=== PATIENT | male | born 1945 | race Caucasian/White ===

== ENCOUNTER 2018-12-08 07:26 | Day surgery (SDC) | payer MEDICARE, OTHER ==
[~2018-12-08] VITALS: Ht 182.9 cm; Wt 79.4 kg
[~2018-12-08 07:26] MED LIST: ASPIRIN EC81 MG PO; BETAMETHASONE V15 G1 TOP; LISINOPRIL10 MG PO; LOSARTAN POTASS50 MG PO; PRAVASTATIN SOD20 MG PO; TERAZOSIN HCL5 MG PO; VITAMIN B-12100 MCG PO; VITAMIN D1000 UNI1 PO
--- NOTE | 2018-12-08 10:01 | NUR ---
12/08/18 Jarrod1 Valeria Chambers 2246 PT TO PACU VERY SLEEPY. 02 PLACED VIA NASAL CANNULA.
--- NOTE | 2018-12-08 14:12 | NUR ---
PT ASLEEP, STAFF REQUESTED I LET HIM SLEEP. WILL FOLLOW NEEDED
--- NOTE | 2018-12-09 06:30 | OR ---
[facility] [address] [place], [place] [address] Signed DATE OF OPERATION: 12/08/2018 SURGEON: Mitchell Dickinson MD PREOPERATIVE DIAGNOSES: 1. Personal history of colonic polyps in 1999 and 2008. 2. Diverticulosis. 3. Internal hemorrhoids. POSTOPERATIVE DIAGNOSES: 1. Minimal hlr-nb-mjfpiu sigmoid diverticulosis. 2. Ukxuoes-eh-lbfymlwt internal and external hemorrhoids. 3. Flattened prostate after radiation therapy. PROCEDURE: Colonoscopy without biopsy. ESTIMATED BLOOD LOSS: None. 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 He has had colonic polyps removed as far back as 1999. He is known to have diverticulosis along with minimal internal hemorrhoids. He and his are now retired. He had been traveling all over the world and enjoying that very much. He returns now for his followup colonoscopy. Of course, he walks on a daily basis and stays in excellent shape. He did bring his EKG with him and it shows sinus rhythm with a first-degree AV block along with a right bundle branch block. He told me he has had that for ever. It does not affect his activities whatsoever. In the meantime, he did have a prostate cancer and ended up with external beam radiation therapy. Otherwise, no specific lower GI complaints. Walter is quite familiar with colonoscopy. He understands the risks, the risks including, but not limited to gas bloating, crampy abdominal pain, bleeding, perforation, requiring surgery, and missed diagnosis. He also understands the need for IV conscious sedation. He has done well with Versed and fentanyl in the past. He had expressed understanding and wished to proceed. PROCEDURE NOTE: Walter was taken into our endoscopy suite and placed in the left lateral decubitus position. He was given a total of 10 mg of Versed and 200 mcg of fentanyl. Walter is tall with a lean build and his sigmoid colon is long and a bit tortuous and it did cause Electronically Signed By: MITCHELL DICKINSON MD 12/09/18 0630 PATIENT NAME: WALTER COCHRAN OPERATIVE REPORT DATE OF : 41 REPORT #: [id number] PHYSICIAN: MITCHELL DICKINSON MD PCP: JIMY VICTORIA MD REPORT IS CONFIDENTIAL AND NOT TO BE RELEASED WITHOUT AUTHORIZATION [facility] [address] [place] [id number] Signed him some discomfort during the procedure. If he has recall the procedure, he might strongly consider propofol as he returns at age 78. A digital rectal exam was performed and he does have some lciqy-hj-mumotngn external hemorrhoids. His sphincter tone is good. The prostate gland is nearly flat, just a small nodule in that area. After this the adult colonoscope was introduced and advanced all around into the cecum. It did take extra sedation and abdominal compression in order to get the scope correctly into the cecum itself. His prep was good. We had taken pictures throughout for photodocumentation. We could easily see the appendiceal orifice and ileocecal valve. We saw no polyps throughout the colon or rectum. Again, he has minimal diverticula in his wlh-fx-kcyzfo sigmoid colon. They were small in size, few in number, and scattered about. The rectum was unremarkable. No evidence of any radiation proctitis. Upon retroflexion of scope he does have njsobot-ow-gacwzbpf standard internal hemorrhoid columns. After this, the gas was suctioned out and colonoscope removed. Walter tolerated his procedure quite well. RECOMMENDATIONS: Walter is welcome to return in 5 years for repeat colonoscopy so long his health holds up. He might consider propofol at age 78 given our experience on this particular endoscopy. I think he would be more relaxed and the scope would pass much easier and his risk for perforation then will be markedly decreased. Otherwise, we will put him on our computer for 5 years. Mitchell Dickinson MD ALB/MODL /[id number] cc: MD Mitchell Hopkins MD Copies: JIMY VICTORIA MD Electronically Signed By: MITCHELL DICKINSON MD 12/09/18 0630 PATIENT NAME: WALTER COCHRAN OPERATIVE REPORT DATE OF : 41 REPORT #: [id number] PHYSICIAN: MITCHELL DICKINSON MD PCP: JIMY VICTORIA MD REPORT IS CONFIDENTIAL AND NOT TO BE RELEASED WITHOUT AUTHORIZATION [facility] [address] [facility] [place], [place] [address] Signed MITCHELL DICKINSON MD ~ Electronically Signed By: MITCHELL DICKINSON MD 12/09/18 0630 PATIENT NAME: WALTER COCHRAN OPERATIVE REPORT DATE OF : 41 REPORT #: [id number] PHYSICIAN: MITCHELL DICKINSON MD PCP: JIMY VICTORIA MD REPORT IS CONFIDENTIAL AND NOT TO BE RELEASED WITHOUT AUTHORIZATION
== END 2018-12-08 10:55 | disposition home or self-care (01) ==
LOC: DS 07:26 → OPS 07:26 → DS 09:00 → OPS 09:00
PROVIDERS: Colon & Rectal Surgery
PROC: 0DJD8ZZ Inspection of Lower Intestinal Tract, Via Natural or Artificial Opening Endoscopic (ICD-10-PCS; principal; 2018-12-08 09:00)
DX: Z12.11 Encounter for screening for malignant neoplasm of colon (principal); K64.8 Other hemorrhoids; K64.4 Residual hemorrhoidal skin tags; N40.2 Nodular prostate without lower urinary tract symptoms; K57.30 Diverticulosis of large intestine without perforation or abscess without bleeding; I10 Essential (primary) hypertension; E78.5 Hyperlipidemia, unspecified; G43.909 Migraine, unspecified, not intractable, without status migrainosus; N40.0 Benign prostatic hyperplasia without lower urinary tract symptoms; Z88.8 Allergy status to other drugs, medicaments and biological substances; Z86.010 Personal history of colon polyps; Z79.899 Other long term (current) drug therapy; Z79.82 Long term (current) use of aspirin
CPT/HCPCS: G0105; 99153; G0500; J2250; J3010; J7120

== ENCOUNTER 2021-03-10 13:30 | Emergency (ER) | payer MEDICARE, BC ==
[~2021-03-10] VITALS: Ht 152.4 cm; Wt 72.6 kg
[2021-03-10] MEDS ORDERED: VOLTAREN ARTHRI20 GM TP (13:57)
--- NOTE | 2021-03-12 12:53 | NUR ---
Call from [employer] stating patients monitor is flashing. They have sent him a gateway replacement to solve problem. I will notify Dr Phi Brown PCP.
--- NOTE | 2021-03-12 14:32 | EKG ---
[facility] [address] [facility] [place] [address] Signed Wide QRS rhythm Right bundle branch block Abnormal ECG When compared with ECG of 13-AUG-2016 18:54, Wide QRS rhythm has replaced Sinus rhythm Confirmed by YUDITH MARQUES DO ([id number]) on 03/12/2021 2:32:32 PM Electronically Signed By: YUDITH MARQUES DO 03/12/21 1432 PATIENT NAME: WALTER COCHRAN Electrocardiogram DATE OF : 41 PHYSICIAN: YUDITH MARQUES DO REPORT #: [id number] REPORT IS CONFIDENTIAL AND NOT TO BE RELEASED WITHOUT AUTHORIZATION
== END 2021-03-10 17:40 | disposition home or self-care (01) ==
LOC: ED 13:30
DX: R53.1 Weakness (principal); I49.9 Cardiac arrhythmia, unspecified; I10 Essential (primary) hypertension; Z88.8 Allergy status to other drugs, medicaments and biological substances; Z79.899 Other long term (current) drug therapy; Z85.46 Personal history of malignant neoplasm of prostate
CPT/HCPCS: 80053; 83735; 84484; 85025; 93005; 93010; 99285-25

== ENCOUNTER 2021-08-29 23:03 | Emergency (ER) | payer MEDICARE, BC ==
[~2021-08-29] VITALS: Ht 152.4 cm; Wt 73.5 kg
[~2021-08-29 23:03] MED LIST changes: +VOLTAREN ARTHRI20 GM TP
[2021-08-29] MEDS ORDERED: TERAZOSIN HCL2 MG PO (23:28)
== END 2021-08-30 01:28 | disposition home or self-care (01) ==
LOC: ED 23:03
DX: I10 Essential (primary) hypertension (principal); R68.83 Chills (without fever); Z20.822 Contact with and (suspected) exposure to COVID-19; G43.909 Migraine, unspecified, not intractable, without status migrainosus; Z85.46 Personal history of malignant neoplasm of prostate
CPT/HCPCS: 71045; 80053; 81001; 85025; 99283-25; C9803; J7030; U0003

== ENCOUNTER 2022-02-28 07:32 | Emergency (ER) | payer MEDICARE, BC ==
[~2022-02-28] VITALS: Ht 152.4 cm; Wt 73.5 kg
[~2022-02-28 07:32] MED LIST changes: +TERAZOSIN HCL2 MG PO
--- NOTE | 2022-02-28 20:23 | EKG ---
[facility] [address] [facility] [place] [address] Signed Sinus bradycardia with 1st degree AV block Right bundle branch block Abnormal ECG When compared with ECG of 10-MAR-2021 13:37, Sinus rhythm has replaced Wide QRS rhythm Vent. rate has decreased BY 32 BPM Confirmed by PJ KOCH MD ([id number]) on 02/28/2022 8:23:16 PM Electronically Signed By: PJ KOCH MD 02/28/222022 PATIENT NAME: WALTER COCHRAN POPPY Electrocardiogram DATE OF : 41 PHYSICIAN: PJ KOCH MD REPORT #: [id number] REPORT IS CONFIDENTIAL AND NOT TO BE RELEASED WITHOUT AUTHORIZATION
== END 2022-02-28 11:33 | disposition home or self-care (01) ==
LOC: ED 07:32
DX: R53.1 Weakness (principal); R63.4 Abnormal weight loss; Z68.31 Body mass index [BMI] 31.0-31.9, adult; Z20.822 Contact with and (suspected) exposure to COVID-19; I10 Essential (primary) hypertension; G43.909 Migraine, unspecified, not intractable, without status migrainosus; Z88.8 Allergy status to other drugs, medicaments and biological substances; Z79.899 Other long term (current) drug therapy
CPT/HCPCS: 36415; 71045; 72080; 72170; 80053; 81001; 83690; 84443; 84484; 85025; 87502; 93005; 93010; 99285-25; C9803; J7030; U0003

== ENCOUNTER 2024-05-12 12:39 | Emergency (ER) | payer MEDICARE, OTHER ==
[~2024-05-12] VITALS: Ht 152.4 cm; Wt 74.4 kg
[2024-05-12 14:20] LABS: BILIRUBIN, URINE NEGATIVE (negative); BLOOD/HGB, URINE NEGATIVE (Negative); KETONE, URINE NEGATIVE (Negative); LEUK ESTERASE, URINE NEGATIVE (negative); NITRITE, URINE NEGATIVE (negative)
[2024-05-12 14:26] LABS: BACTERIA, URINE NONE SEEN /hpf (negative); CASTS, URINE NONE SEEN \\lpf; COLLECTION TYPE, URINE CLEAN CATCH; CRYSTALS, URINE NONE SEEN (0-1+); EPITHELIAL CELLS, URINE 0 /lpf (0-1+); RED BLOOD CELLS, URINE 0-1 /hpf (0-5); REFLEX CULTURE, URINE No (No); WHITE BLOOD CELLS, URINE 0-1 /HPF (0-5)
[2024-05-12 15:30] VITALS: BP 175/71
== END 2024-05-12 15:34 | disposition home or self-care (01) ==
LOC: ED 12:39
PROVIDERS: Emergency Medicine
DX: N45.1 Epididymitis (principal); N43.3 Hydrocele, unspecified; I10 Essential (primary) hypertension; K58.9 Irritable bowel syndrome, unspecified; G43.909 Migraine, unspecified, not intractable, without status migrainosus; Z85.46 Personal history of malignant neoplasm of prostate; Z88.8 Allergy status to other drugs, medicaments and biological substances; Z79.899 Other long term (current) drug therapy
CPT/HCPCS: 76870; 81001; 99284-25

== ENCOUNTER 2024-06-24 05:50 | Day surgery (SDC) | payer MEDICARE, OTHER ==
[2024-06-21 09:25] VITALS: BP 136/76
[~2024-06-24] VITALS: Ht 180.3 cm; Wt 70.9 kg
[~2024-06-24 05:50] MED LIST changes: +MIDAZOLAM HCL 5 MG/5 ML VIAL IV PRN; +MULTI VITAMIN1 EACH PO; +fentaNYL citrate 100 MCG/2 ML VIAL IV PRN
[2024-06-24 06:00] VITALS: BP 152/73
[2024-06-24] MEDS ORDERED: IBLOOD GLUCOSE TEST STRIP 1 EA TEST VI PRN (07:00)
[2024-06-24] MEDS ORDERED: LACTATED RINGER'S 1,000 ML IV SCH (07:00)
[2024-06-24] MEDS ORDERED: LIDOCAINE HCL 1% 5 ML SDV INJ ONE (07:00)
[2024-06-24] MEDS ORDERED: LIDOCAINE HCL 2% 5 ML SDV ONE (07:23)
[2024-06-24] MEDS ORDERED: propofoL 200 MG/20 ML VIAL ONE (07:23)
--- NOTE | 2024-06-24 08:27 | NUR ---
06/24/24 0827 Keaton,Susan 0800 PT ARRIVED TO PACU ON 6L VIA MASK, PT ASLEEP AND RESP EVEN AND UNLABORED. VSS. 0808 PT WAKES AND O2 REMOVED, PT REORIENTED TO PACU AND DENIES CONCERNS. PT ENCOURAGED TO PASS GAS AND PT ABLE TO DO SO OFF AND ON. PLAN OF CARE DISUCSSED.
[2024-06-24 08:39] VITALS: BP 152/71
--- NOTE | 2024-06-24 09:25 | OR ---
[facility] [address] [place], [place] [address] Signed DATE OF OPERATION: 06/24/2024 SURGEON: Mitchell Dickinson MD PREOPERATIVE DIAGNOSES: 1. Positive Cologuard test in March 2024. 2. Irritable bowel syndrome. 3. Tubular adenomatous polyps in 1999 at age 55. 4. Diverticulosis. 5. Internal and external hemorrhoids. 6. Tortuous sigmoid colon. 7. Radiation treatment for prostate cancer. POSTOPERATIVE DIAGNOSES: 1. A 3 mm polyp at base of cecum. 2. A 4 mm polyp at 60 cm in left colon. 3. Possible minimal melanosis coli. 4. Minimal sigmoid diverticulosis. 5. Tortuous sigmoid colon. 6. Moderate internal and external hemorrhoids. 7. Mild distal radiation proctitis. PROCEDURE: Colonoscopy with hot biopsy. ESTIMATED BLOOD LOSS: None. 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 He was asked to see me for a positive Cologuard test in March of 2024. I had reviewed his rather extensive records. He is known to have irritable bowel syndrome throughout his life. He has a little fecal soilage from time to time. He had an initial colonoscopy in 1999 at the age of 55 [address] Hugo Sal. He had an adenomatous polyp removed at that time. Dr. Sal had him come back in 2001 at the age of 57 for repeat, but negative colonoscopy. I helped in 2008 at age of 63. He had several hyperplastic polyps. He had diverticulosis and internal hemorrhoids. He came back in 2012 at the age of 68 for guaiac-positive stool. The colonoscopy was unremarkable other than the diverticulosis and internal hemorrhoids. He had used a large amount of Versed and fentanyl. He said he has been drinking a little wine each night with his in [place]. He came back Electronically Signed By: MITCHELL DICKINSON MD 06/24/24 0925 PATIENT NAME: WALTER COCHRAN OPERATIVE REPORT DATE OF : 41 REPORT #: [id number] PHYSICIAN: MITCHELL DICKINSON MD PCP: CAROLINE HILL MD REPORT IS CONFIDENTIAL AND NOT TO BE RELEASED WITHOUT AUTHORIZATION [facility] [address] [place], [place] [address] Signed in 2019 at the age of 73. Again, a large amount of Versed and fentanyl. We recommended he have monitored anesthesia care in the future, especially with respect to his tortuous sigmoid colon. Again, he had diverticulosis, internal hemorrhoids and now external hemorrhoids. He has remained active in [facility]. He has had his ideal body weight. He and his have been over [place] and other places traveling. When it is his Cologuard test came back positive in March 2024. He said his memory is not quite what it used to be. He also underwent radiation treatment for his prostate cancer. In the office, I gave him our pamphlet on colonoscopy. Of course, he understands the test quite well. There is risk including, but not limited to gas bloating, crampy abdominal pain, bleeding, perforation requiring surgery, and missed diagnosis. We also reviewed the written instructions for a bowel prep line by line. He also understands the need for monitored anesthesia care with propofol infusion given his advanced age and his daily use of alcohol. He had expressed understanding and wished to proceed. He said his would be available to take him home afterwards. DESCRIPTION OF PROCEDURE: Walter was taken into our endoscopy suite and placed in the left lateral decubitus position. He was given monitored anesthesia, propofol infusion per nurse derrick helper. A digital rectal exam was performed. With gentle traction, he does have external hemorrhoids and there was a beefy hemorrhoid that came out and I am sure that is why his Cologuard test was positive. He had good sphincter tone. There were no masses. The prostate gland was completely flattened from the radiation treatment. The adult colonoscope was introduced and advanced under direct visualization of camera. It did take some extra time to get through the tortuous sigmoid colon. Eventually, we made it rind into the cecum. He did need some abdominal compression, some extra propofol. His prep was quite excellent as always. We could easily see the appendiceal orifice, ileocecal valve. The two polyps mentioned above were easily removed with hot biopsy forceps. As we came back down the colon, we could easily see the diverticula in the sigmoid colon. They were moderate in size, few in number and scattered about. We also thought he might have some very mild tiger striping consistent with melanosis coli. We therefore took a single biopsy from the hepatic flexure in that regard. Once in the rectum, the scope was retroflexed and he has some moderate internal hemorrhoids. He has just a little bit of irritation from the radiation treatment above the anal canal. After this, the gas was suctioned out and colonoscope removed. Walter tolerated the procedure quite well. RECOMMENDATIONS: I will see Walter back in my office in 7 to 14 days to review his results. I suspect this will be his last colonoscopy. Electronically Signed By: MITCHELL DICKINSON MD 06/24/24 0925 PATIENT NAME: WALTER COCHRAN OPERATIVE REPORT DATE OF : 41 REPORT #: [id number] PHYSICIAN: MITCHELL DICKINSON MD PCP: CAROLINE HILL MD REPORT IS CONFIDENTIAL AND NOT TO BE RELEASED WITHOUT AUTHORIZATION [address] [place], [place] [address] Signed Mitchell Dickinson MD [facility]/MODL /[id number] cc: Caroline Dickinson MD Copies: MITCHELL DICKINSON MD ~ Electronically Signed By: MITCHELL DICKINSON MD 06/24/24 0925 PATIENT NAME: WALTER COCHRAN OPERATIVE REPORT DATE OF : 41 REPORT #: [id number] PHYSICIAN: MITCHELL DICKINSON MD PCP: CAROLINE HILL MD REPORT IS CONFIDENTIAL AND NOT TO BE RELEASED WITHOUT AUTHORIZATION
--- NOTE | 2024-06-28 18:30 | PATH ---
[facility] [address] [place], [place] [address] Signed SPECIMEN(S): A CECUM POLYP SPECIMEN(S): B HEPATIC FLEXURE BIOPSY SPECIMEN(S): C DESCENDING LEFT POLYP 60CM SPECIMEN SOURCE: A. CECUM POLYP B. HEPATIC FLEXURE BIOPSY C. DESCENDING LEFT POLYP 60CM CLINICAL HISTORY: Positive Cologuard, mild melanosis coli, colon polyps, diverticulosis FINAL PATHOLOGIC DIAGNOSIS: A. Cecum polyp: - Polypoid colonic mucosa with slight adenomatous change (one fragment). B. Hepatic flexure biopsy: - Polypoid colonic mucosa with slight adenomatous change (one fragment). C. Descending left polyp at 60 cm: - Tubular adenoma (one fragment). JVR:clv MICROSCOPIC EXAMINATION: Histologic sections of all submitted blocks are examined by light microscopy. These findings, together with the gross examination, support the pathologic diagnosis. GROSS DESCRIPTION: A. The specimen, labeled and designated "Kaleb, cecum polyp," is received in formalin and consists of one franklin soft tissue fragment, 0.2 cm. Entirely submitted in (A1). B. The specimen, labeled and designated "Kaleb, hepatic flexure biopsy," is received in formalin and consists of one franklin soft tissue fragment, 0.3 cm. Entirely submitted in (B1). C. The specimen, labeled and designated "Kaleb, descending left polyp 60 cm," is received in formalin and consists of two franklin soft tissue fragments, ranging from 0.2-0.3 cm. Entirely submitted in (C1). VB (under the direct supervision of a pathologist) The Gross Description was prepared using a voice recognition system. The report was reviewed for accuracy; however, sound-alike word errors, addition and/or deletions may occur. If there is any PATIENT NAME: WALTER COCHRAN PATHOLOGY DATE OF : 41 REPORT #: [id number] PHYSICIAN: AVRIL BRYANT PCP: BARBARA HILL MD REPORT IS CONFIDENTIAL AND NOT TO BE RELEASED WITHOUT AUTHORIZATION [address] [place], [place] [address] Signed question about this report, please contact Client Services. PERFORMING LABORATORY: Technical component was performed by [facility], [address] [place] [address] (CLIA# [id number]). Professional interpretation was performed by [facility], [address] [place] [id number] (CLIA#: [id number]). Diagnostician: Varun Aguilar MD Pathologist Electronically Signed 06/28/2024 Copies: ~ PATIENT NAME: WALTER COCHRAN PATHOLOGY DATE OF : 41 REPORT #: [id number] PHYSICIAN: [facility] PCP: BARBARA HILL MD REPORT IS CONFIDENTIAL AND NOT TO BE RELEASED WITHOUT AUTHORIZATION
== END 2024-06-24 08:51 | disposition home or self-care (01) ==
LOC: DS 05:50
PROVIDERS: ATTEND Colon & Rectal Surgery
PROC: 0DBG8ZZ Excision of Left Large Intestine, Via Natural or Artificial Opening Endoscopic (ICD-10-PCS; 2024-06-24)
PROC: 0DBH8ZZ Excision of Cecum, Via Natural or Artificial Opening Endoscopic (ICD-10-PCS; principal; 2024-06-24 07:30)
DX: Z12.11 Encounter for screening for malignant neoplasm of colon (principal); D12.4 Benign neoplasm of descending colon; D12.0 Benign neoplasm of cecum; D12.3 Benign neoplasm of transverse colon; K57.30 Diverticulosis of large intestine without perforation or abscess without bleeding; K64.4 Residual hemorrhoidal skin tags; K64.8 Other hemorrhoids; K62.7 Radiation proctitis; K63.89 Other specified diseases of intestine; E78.2 Mixed hyperlipidemia; I10 Essential (primary) hypertension; K58.9 Irritable bowel syndrome, unspecified; Z86.0101 Personal history of adenomatous and serrated colon polyps; Z79.899 Other long term (current) drug therapy; Z88.8 Allergy status to other drugs, medicaments and biological substances; Z90.49 Acquired absence of other specified parts of digestive tract
CPT/HCPCS: 00811; J2003; J2704; J7121

== ENCOUNTER 2025-03-14 18:12 | Emergency (ER) | payer MEDICARE, OTHER ==
[~2025-03-14] VITALS: Ht 180.3 cm; Wt 75.0 kg
[~2025-03-14 18:12] MED LIST changes: -MIDAZOLAM HCL 5 MG/5 ML VIAL IV PRN; -fentaNYL citrate 100 MCG/2 ML VIAL IV PRN
[2025-03-14 19:28] LABS: BASOPHILS 0.5 % (0.2-1.2); EOSINOPHILS 1.3 % (0.8-7.0); LYMPHOCYTES 33.4 % (21.8-53.1); MCH 33.2 PG (25.7-32.2); MCHC 33.7 g/dL (32.3-36.5); MCV 98.4 fL (79.0-92.2); MONOCYTES 10.8 % (5.3-12.2); NEUTROPHILS 53.7 % (34.0-67.9); RBC 4.31 M/uL (4.63-6.08)
[2025-03-14 19:50] LABS: ALT (SGPT) 35.0 U/L (14-59); AST (SGOT) 26.0 U/L (15-37); GLOMERULAR FILTRATION RATE,EST 73.0 mL/min (>60); PROTEIN, TOTAL 6.4 g/dL (6.4-8.2); UREA NITROGEN 19.0 mg/dL (7-18)
[2025-03-14] MEDS ORDERED: LOSARTAN POTASS50 MG PO (22:26)
[2025-03-14 22:35] VITALS: BP 159/72
--- NOTE | 2025-03-15 10:55 | EKG ---
[facility] [address] [facility] [place] [address] Signed Sinus bradycardia with 1st degree AV block Right bundle branch block Abnormal ECG When compared with ECG of 21-JUN-2024 09:36, Right bundle branch block has replaced Nonspecific intraventricular block Confirmed by Sidney Brown DO ([id number]) on 03/15/2025 10:55:08 AM Electronically Signed By: SIDNEY BROWN DO 03/15/25 1055 PATIENT NAME: DIMASWALTERBONNIE MCWILLIAMS Electrocardiogram DATE OF : 41 PHYSICIAN: SIDNEY BROWN DO REPORT #: [id number] REPORT IS CONFIDENTIAL AND NOT TO BE RELEASED WITHOUT AUTHORIZATION
== END 2025-03-14 22:37 | disposition home or self-care (01) ==
LOC: ED 18:12
PROVIDERS: Emergency Medicine
DX: I10 Essential (primary) hypertension (principal); Z79.899 Other long term (current) drug therapy
CPT/HCPCS: 36415; 80053; 84484; 85025; 93005; 93010; 96372; 99283; J0360